=== PATIENT | female | born 1990 | race Caucasian/White ===

== ENCOUNTER 2017-10-16 23:16 | Emergency (ER) | payer OTHER ==
[~2017-10-16] VITALS: Ht 157.5 cm; Wt 102.1 kg
[~2017-10-16 23:16] MED LIST: ALBU0.094 IH
[2017-10-16 23:21] VITALS: BP 132/77
--- NOTE | 2017-10-16 23:34 | NUR ---
PT TAKEN TO BED 3
--- NOTE | 2017-10-16 23:35 | NUR ---
PATIENT IS A 27 Y/O FEMALE WHO PRESENTS TO THE ED C/O CHEST PAIN. PT STATES, "MY CHEST ARM MY LEFT ARM HAS BEEN HURTING." PT REPORTS 9/10 STABBING CHEST PAIN THAT RADIATES TO THE LEFT ARM. PT DENIES SOB, REPORTS NAUSEA/VOMITING. PT AAOX4, RR EVEN/UNLABORED. PT REPOSITIONED FOR COMFORT, BED IN LOWEST POSITION. ER MD DR. MEANS NOTIFIED. WILL CONTINUE TO MONITOR.
--- NOTE | 2017-10-16 23:54 | NUR ---
X-Ray at bedside.
[2017-10-17] MEDS ORDERED: HYDROmorphone 1 MG/ML AMP IM ONE (00:10)
[2017-10-17] MEDS ORDERED: DICYCLOMINE 20 MG/2 ML VIAL IM ONE (00:10)
--- NOTE | 2017-10-17 00:10 | NUR ---
NO AVAIL 1MG/1ML DILAUDID. ER MD DR. MEANS MADE AWARE. PULLED 2MG/1ML AND WASTED 0.5ML WITH KO URIBE.
[2017-10-17] MEDS ORDERED: HYDROmorphone PFS 2 MG/ML SYR ONE (00:25)
--- NOTE | 2017-10-17 02:02 | NUR ---
Patient discharged with v/s stable. Written and verbal after care instructions given and explained. Patient alert, oriented and verbalized understanding of instructions. Ambulatory with steady gait. All questions addressed prior to discharge. ID band removed. Patient advised to follow up with PMD. Rx of ORTAB 7.5 MG/500 MG/15 ML given. Patient educated on indication of medication including possible reaction and side effects. Opportunity to ask questions provided and answered.
[2017-10-17 02:03] VITALS: BP 101/60
== END 2017-10-17 02:02 | disposition home or self-care (01) ==
LOC: MED 23:16
DX: R07.89 Other chest pain (principal); R10.10 Upper abdominal pain, unspecified; R06.02 Shortness of breath; J45.909 Unspecified asthma, uncomplicated; Z79.899 Other long term (current) drug therapy
CPT/HCPCS: 71010; 74176; 81025; 93005; 96372; 99284; J0500; J1170; Q0092

== ENCOUNTER 2018-09-05 16:25 | Emergency (ER) | payer OTHER ==
[~2018-09-05] VITALS: Ht 157.5 cm; Wt 72.1 kg
[2018-09-05 16:28] VITALS: BP 96/58
--- NOTE | 2018-09-05 16:36 | NUR ---
PT AMBULATES TO BED 9
--- NOTE | 2018-09-05 16:39 | NUR ---
Patient being evaluated by physician at bedside.
--- NOTE | 2018-09-05 16:40 | NUR ---
PATIENT PRESENTS TO ED WITH HEADACHE X 2 DAYS . PT STATES SHE HAS TAKEN MEDICATION PRESCRIBED WITHOUT RELIEF. FEELING NAUSEOUS AND HAS VOMITED TODAY; SKIN IS PINK/WARM/DRY; AAOX4 WITH EVEN AND STEADY GAIT; LUNGS CLEAR BL; HR EVEN AND REGULAR; PT DENIES ANY FEVER, CP, SOB, OR COUGH AT THIS TIME; PATIENT STATES PAIN OF 0/10 AT THIS TIME; VSS; PATIENT POSITIONED FOR COMFORT; HOB ELEVATED; BEDRAILS UP X2; BED DOWN. ER MD MADE AWARE OF PT STATUS.
[2018-09-05] MEDS ORDERED: METOCLOPRAMIDE 10 MG/2 ML INJ VIAL IM ONE (16:55)
[2018-09-05] MEDS ORDERED: ACETAMINOPHEN EXTRA STRENGTH 500 MG TAB PO ONE (16:55)
--- NOTE | 2018-09-05 18:05 | NUR ---
Patient discharged with v/s stable. Written and verbal after care instructions given and explained. Patient alert, oriented and verbalized understanding of instructions. Ambulatory with steady gait. All questions addressed prior to discharge. ID band removed. Patient advised to follow up with PMD. Rx of TYLENOL, ZOFRAN given. Patient educated on indication of medication including possible reaction and side effects. Opportunity to ask questions provided and answered.
[2018-09-05 18:16] VITALS: BP 96/58
--- NOTE | 2018-09-05 18:17 | NUR ---
Note shavon in EDM - 09/05/18 at 1817 by MARGARETH Patient discharged with v/s stable. Written and verbal after care instructions given and explained. Patient alert, oriented and verbalized understanding of instructions. Ambulatory with steady gait. All questions addressed prior to discharge. ID band removed. Patient advised to follow up with PMD. Rx of TYLENOL, ZOFRAN given. Patient educated on indication of medication including possible reaction and side effects. Opportunity to ask questions provided and answered.
== END 2018-09-05 18:17 | disposition home or self-care (01) ==
LOC: MED 16:25
DX: G43.909 Migraine, unspecified, not intractable, without status migrainosus (principal); R11.2 Nausea with vomiting, unspecified; H53.149 Visual discomfort, unspecified; J45.909 Unspecified asthma, uncomplicated; Z79.899 Other long term (current) drug therapy
CPT/HCPCS: 81002; 81025; 96372; 99283; J2765